=== PATIENT | female | born 1980 | race American Indian/Alaskan Native ===

== ENCOUNTER 2017-02-19 09:37 | Outpatient (CLI) | payer BC ==
[2017-02-19] MEDS ORDERED: XYLOCAINE TOPICAL 4% TP ONE ×2 (10:39→10:44)
== END 2017-02-19 09:38 | disposition home or self-care (01) ==
LOC: WOUND 09:37
PROVIDERS: ATTEND Nurse Practitioner
DX: T25.221A Burn of second degree of right foot, initial encounter (principal); I10 Essential (primary) hypertension; X08.8XXA Exposure to other specified smoke, fire and flames, initial encounter; Y93.89 Activity, other specified; Y92.89 Other specified places as the place of occurrence of the external cause; Y99.8 Other external cause status
CPT/HCPCS: 11042; G0463; 99215

== ENCOUNTER 2017-02-26 10:50 | Outpatient (CLI) | payer BC ==
[2017-02-26] MEDS ORDERED: XYLOCAINE TOPICAL 4% TP ONE ×2 (11:29→12:12)
== END 2017-02-26 10:51 | disposition home or self-care (01) ==
LOC: WOUND 10:50
PROVIDERS: ATTEND Nurse Practitioner
DX: T25.221D Burn of second degree of right foot, subsequent encounter (principal); T25.222D Burn of second degree of left foot, subsequent encounter; I10 Essential (primary) hypertension; X10.2XXD Contact with fats and cooking oils, subsequent encounter

== ENCOUNTER 2017-03-05 10:52 | Outpatient (CLI) | payer BC ==
[2017-03-05] MEDS ORDERED: XYLOCAINE TOPICAL 2% TP ONE (11:15)
[2017-03-05] MEDS ORDERED: XYLOCAINE TOPICAL 2% ONE (11:16)
== END 2017-03-05 10:53 | disposition home or self-care (01) ==
LOC: WOUND 10:52
PROVIDERS: ATTEND Surgery
DX: T25.221D Burn of second degree of right foot, subsequent encounter (principal); T24.231D Burn of second degree of right lower leg, subsequent encounter; T24.232D Burn of second degree of left lower leg, subsequent encounter; I10 Essential (primary) hypertension; X08.8XXD Exposure to other specified smoke, fire and flames, subsequent encounter
CPT/HCPCS: 97597

== ENCOUNTER 2017-03-12 10:57 | Outpatient (CLI) | payer BC ==
[2017-03-12] MEDS ORDERED: AD OINTMENT TP ONE (11:37)
== END 2017-03-12 10:58 | disposition home or self-care (01) ==
LOC: WOUND 10:57
PROVIDERS: ATTEND Nurse Practitioner
DX: T25.221D Burn of second degree of right foot, subsequent encounter (principal); I10 Essential (primary) hypertension; X08.8XXD Exposure to other specified smoke, fire and flames, subsequent encounter
CPT/HCPCS: 99213; A6250; G0463